=== PATIENT | female | born 2000 | race Caucasian/White ===

== ENCOUNTER 2018-02-09 02:17 | Emergency (ER) | payer OTHER ==
[~2018-02-09] VITALS: Ht 162.6 cm; Wt 69.1 kg
[2018-02-09 02:25] VITALS: TEMP 36.7; Ht 162.6 cm; Wt 69.1 kg
--- NOTE | 2018-02-09 02:53 | EMERGENCY ROOM VISIT NOTE ---
ED Visit Note First contact with patient: 02:26 CHIEF COMPLAINT: Foot pain HISTORY OF PRESENT ILLNESS: This 17-year-old patient presents to the emergency department with boyfriend complaining of swelling and pain in the right foot at rest and worse with weight bearing. The patient kicked a door as she was upset. The patient rates the pain as throbbing and 5/10. The patient has nothing for relief of the pain. The patient is barely able to walk. No numbness or weakness. No ankle pain. There are no lacerations of the foot. The patient is able to move all of their toes and their ankle without pain. no previous fracture to this foot. REVIEW OF SYSTEMS: GENERAL: A 6 system review of systems was completed with positives and pertinent negatives in the HPI. ALLERGIES: None MEDICATIONS: None PMH: None SOCIAL HISTORY: Occasional alcohol use PHYSICAL EXAM: Vital Signs: Reviewed Nurse's notes, vital signs stable. GENERAL : Pleasant female, in no acute distress, but appears in pain, well-developed, well-nourished. MUSCULOSKELATAL: There is no visual deformity of the right foot. There is + erythema no ecchymosis. There is no warmth. There is tenderness and swelling over the mid foot. There is no tenderness over the lateral or medial malleolus. No tenderness of the tib/fib. The range of motion of the foot is not limited secondary to pain. There is no tenderness over the plantar fascia. The skin is intact and there are no lacerations or puncture wounds. Dorsalis pedis pulse 2+. Capillary refill less than 2 seconds. EMERGENCY DEPARTMENT COURSE: I examined the patient. An X-ray of the right foot was reviewed by myself and my attending and reveals no fracture. The patient was placed in post op shoe and instructed on the use of crutches. Neurovascular status was rechecked after placement and is intact. Patient was advised to follow-up with orthopedics in a few days if symptoms persist or here in the ER sooner for severe pain, numbness, tingling, worsening signs or symptoms or as needed. The patient was discharged home in good condition. Differential diagnosis includes sprain, strain, fracture, dislocation, contusion and other etiologies were considered. DIAGNOSIS: Right foot injury TREATMENT: Recommend avoid kicking doors. Ibuprofen(Motrin, Advil) may be used for fever or pain. Use 600mg every six hours as needed. Take with food. Avoid using more than 2400mg in a 24 hour period. Do not use 2400mg per day for more than three consecutive days without physician direction. Prolonged inappropriate use can lead to stomach upset or ulcers. This medication can be taken if you need to drive, work, or perform activities which may be dangerous when taking narcotic pain medication. (AND/OR) Acetaminophen(Tylenol) may be used for fever or pain. Use 1000mg every six hours as needed. Avoid using more than 3000mg in a 24 hour period. This medication can be taken if you need to drive, work, or perform activities which may be dangerous when taking narcotic pain medication. Ice compresses for 20 minutes at a time four times daily for 2-3 days. Use the crutches as instructed. Rest and elevate your injury. Wear postop shoe for comfort. Do not have it so tight that you cannot feel your toes. Continue current medications. Return to the ER immediately for any numbness, tingling, severe pain, extreme swelling in the extremity or as needed. Call Orthopedics in 3-5 days if symptoms persist to arrange follow up for your injury. Vital Signs Date Time Temp Pulse Resp B/P (MAP) Pulse Ox O2 Delivery O2 Flow Rate FiO2 02/09/18 02:25 36.7 86 18 121/80 94 Room Air Departure Information Referrals No Doctor, Assigned (PCP) Patient Instructions My [facility]
[2018-02-09 03:16] VITALS: BP 120/78; PULSE 86; O2SAT 94
--- NOTE | 2018-02-09 07:22 | DIAGNOSTIC IMAGING REPORT ---
RIGHT FOOT 3 VIEWS CLINICAL HISTORY: Right foot pain. The patient kicked a door. FINDINGS: 3 views of the right foot are obtained. No prior studies are available for comparison at the time of dictation. The skeletal structures are well mineralized. No fracture is seen. The joint spaces of the foot are well-maintained. The overlying soft tissues are within normal limits. IMPRESSION: There is no radiographic evidence of right foot fracture. Electronically signed by: Karthikeyan Marques M.D. 02/09/2018 7:20 AM Dictated Date/Time: 02/09/2018 7:20 AM
== END 2018-02-09 03:17 | disposition home or self-care (01) ==
LOC: C.EDB 02:18 → C.EDA 03:17
DX: S99.921A Unspecified injury of right foot, initial encounter (principal); W22.09XA Striking against other stationary object, initial encounter